=== PATIENT | male | born 1990 | race Two or more races ===

== ENCOUNTER 2021-06-01 09:46 | Day surgery (SDC) | payer OTHER, SELFPAY ==
--- NOTE | 2021-05-30 15:11 | P.CONAN_ITS ---
Documented by User: Tita Hernández NP 05/30/21 15:11 HPI - Anesthesia Eval Consult details Narrative: 30yo M for Upper Endoscopy [facility] Past Medical History Medical History (Updated 05/24/21 @ 14:57 by Ashley Martínez, CUCA) Dysphagia Elevated cholesterol Environmental allergies Hiatal hernia History of heartburn Migraines Surgical History Surgical History (Updated 05/24/21 @ 14:57 by Ashley Martínez, RN) Hx of LASIK Social History Social History Patient Tobacco Use Status: Never used Tobacco Use of substances other than those prescribed or required for medical reasons: No Are you DNR?: No Advance Directives: No Advance Directives Information Provided: Yes Recently lost weight without trying: No Nutrition Risks: No Nutritional Risk Meds Allergies Allergy/AdvReac Type Severity Reaction Status Date / Time No Known Allergies Allergy Verified 05/31/21 10:12 Home Medications Medication Instructions Recorded Confirmed Last Taken Type fluticasone furoate 27.5 1 spray INTRANASAL DAILY 05/24/21 05/24/21 Unknown History mcg/actuation nasal spray,suspension (Flonase Sensimist) omeprazole 10 mg capsule,delayed 10 mg PO DAILY 05/24/21 05/24/21 Unknown History release sumatriptan 5 mg/actuation nasal 5 mg INTRANASAL Q2-4H PRN 05/24/21 05/24/21 Unknown History spray Exam Exam Date and Time: May 30, 2021 1511 Assessment and Plan Assessment Anesthesia Assessment: Chart Reviewed Documented by User: Bryon Hamilton MD 06/01/21 10:55 [facility] Past Medical History Medical History (Updated 05/24/21 @ 14:57 by Ashley Martínez RN) Dysphagia Elevated cholesterol Environmental allergies Hiatal hernia History of heartburn Migraines Surgical History Surgical History (Updated 05/24/21 @ 14:57 by Ashley Martínez RN) Hx of MONIK Social History Social History Patient Tobacco Use Status: Never used Tobacco Use of substances other than those prescribed or required for medical reasons: No Are you DNR?: No Advance Directives: No Advance Directives Information Provided: Yes Recently lost weight without trying: No Nutrition Risks: No Nutritional Risk Meds Allergies Allergy/AdvReac Type Severity Reaction Status Date / Time No Known Allergies Allergy Verified 05/31/21 10:12 Home Medications Medication Instructions Recorded Confirmed Last Taken Type fluticasone furoate 27.5 1 spray INTRANASAL DAILY 05/24/21 05/24/21 Unknown History mcg/actuation nasal spray,suspension (Flonase Sensimist) omeprazole 10 mg capsule,delayed 10 mg PO DAILY 05/24/21 05/24/21 Unknown History release sumatriptan 5 mg/actuation nasal 5 mg INTRANASAL Q2-4H PRN 05/24/21 05/24/21 Unknown History spray Exam Airway Mallampati Class: II TM Dist: >3cm Neck ROM: Full
[2021-06-01 09:54] VITALS: BMI 32.9
[2021-06-01 10:02] VITALS: BP 133/96; PULSE 108; RESP 16; TEMP 36.5; O2SAT 95
[2021-06-01] MEDS: Lactated Ringers 1,000 ML 100 ML IVCONT (10:18)
--- NOTE | 2021-06-01 11:07 | MHC.SHP ---
Pre-Procedural Eval Section A Date of Service: 06/01/21 The patient is an INPATIENT: No Changes since office visit: No Cold of Flu in the past 2 weeks, No New Medical Problems, No Changes in Medication and No Patient answered all questions The History & Physical has been completed within 30 days and I have reviewed it.: Yes Section B Chief Complaint: dysphagia Allergies: Allergies Allergy/AdvReac Type Severity Reaction Status Date / Time No Known Allergies Allergy Verified 05/31/21 10:12 Plan I have reviewed the history and physical and performed a pertinent physical examination on my patient. No changes have occurred unless specified.
--- NOTE | 2021-06-01 11:39 | PM.OP ---
Brief Operative Note Date of Service: 06/01/21 Pre-op diagnosis: dysphagia Post-op diagnosis: same Procedure: egd Surgeon: Jayson Ramirez Anesthesia: MAC Was an Collection Analyst used for this Procedure?: No Estimated blood loss (mL): 5 Pathology: other (bxs esophagus, egj, antrum) Condition: stable Disposition: PACU
[2021-06-01 11:50] VITALS: BP 139/96; PULSE 88; RESP 16; TEMP 36.5; O2SAT 100
--- NOTE | 2021-06-01 12:04 | OP_ITS ---
SURGEON: Jayson Ramirez MD INDICATIONS: Dysphagia and abnormal barium swallow. PREOPERATIVE DIAGNOSIS: POSTOPERATIVE DIAGNOSIS: PROCEDURE PERFORMED: Upper endoscopy with biopsy. ESTIMATED BLOOD LOSS: COMPLICATIONS: ANESTHESIA: ASSISTANTS: SPECIMENS: MEDICATIONS: Monitored anesthesia care. DESCRIPTION OF PROCEDURE: History and physical performed. The risks and benefits of the procedure were explained to the patient. Informed consent was obtained. The patient was placed in the left lateral decubitus position. The Olympus video gastroscope was introduced into the esophagus, stomach, and duodenum. Examination was performed and the scope was removed. He tolerated the procedure well and was returned to recovery area in stable condition. FINDINGS: Esophagus: The esophagus showed normal overlying mucosa. Biopsies were obtained from the mid esophagus to rule out eosinophilic esophagitis and from the distal esophagus at the EG junction to evaluate for any evidence of Enrique's esophagus. There was no stricture or ring. There was a small sliding hiatal hernia. The scope easily passed through the stomach. Stomach: The stomach was normal. Antral biopsies were obtained to evaluate for H pylori. Duodenum: The bulb and second portion were normal. IMPRESSION: 1. Dysphagia. 2. Abnormal barium swallow. RECOMMENDATION: Follow up the biopsy results. MD FREDY Greenfield/ADEN / [id number]
[2021-06-01 12:05] VITALS: BP 128/91; PULSE 89; RESP 16; TEMP 36.4; O2SAT 96
== END 2021-06-01 12:20 | disposition home or self-care (01) ==
PROVIDERS: PCP Internal Medicine; Visit Provider Internal Medicine Gastroenterology
PROC: 0DJ08ZZ Inspection of Upper Intestinal Tract, Via Natural or Artificial Opening Endoscopic (ICD-10-PCS; CPT 43235; principal; 2021-06-01 10:50)
DX: R13.19 Other dysphagia (principal); K20.80 Other esophagitis without bleeding; K21.9 Gastro-esophageal reflux disease without esophagitis; K44.9 Diaphragmatic hernia without obstruction or gangrene; R10.9 Unspecified abdominal pain; R19.5 Other fecal abnormalities; Z79.899 Other long term (current) drug therapy
CPT/HCPCS: 43239; 88305; 88342; J3010

== ENCOUNTER 2025-07-17 17:21 | Emergency (ER) | payer OTHER, SELFPAY ==
--- NOTE | 2025-07-17 17:26 | ED.ABDPAIN ---
HPI - Abdominal Pain General Chief Complaint: Abdominal Pain Stated Complaint: pressure pain left side vomit with blood Time Seen by Provider: 07/17/25 17:51 Source: patient Mode of arrival: ambulatory Limitations: no limitations History of Present Illness ED Provider: Sherita Jones APRN HPI narrative: 35 yo male with PMH hiatal hernia here with complaints of LUQ abdominal pain which began at 12pm with nausea and dry heaves. Patient felt that might be hungry so at 15:00 he went to [id number] and he had a [employer] chicken plate and a Alejandra Colada and then he had worsening pain any went to the bathroom and had 3 episodes of vomiting. The last episode was blood streaked. Patient denies any black or bloody stools. No fevers, chills, chest pain, shortness of breath, weakness, dizziness. Patient reports he drank several beers weekly. Denies any drug use. No regular NSAID use. Related Data Home Medications ?Medication ?Instructions ?Recorded ?Confirmed fluticasone furoate 27.5 1 spray intranasal DAILY 05/24/21 05/24/21 mcg/actuation nasal spray,suspension (Flonase Sensimist) omeprazole 10 mg capsule,delayed 10 mg PO DAILY 05/24/21 05/24/21 release sumatriptan 5 mg/actuation nasal 5 mg intranasal Q2-4H PRN Migraine 05/24/21 05/24/21 spray Headache Previous Rx's ?Medication ?Instructions ?Recorded omeprazole 40 mg capsule,delayed 40 mg PO DAILY #14 caps 07/17/25 release Allergies Allergy/AdvReac Type Severity Reaction Status Date / Time No Known Allergies Allergy Verified 07/17/25 17:29 Review of Systems Review of Systems Yes all other systems are reviewed and are negative Constitutional: Reports no additional constitutional complaints, Denies body ache(s), Denies chills, Denies fever(s), Denies headache(s) and Denies weakness Eyes: Reports no additional eye complaints and Denies change in vision Reports system reviewed and no additional complaints, except as documented, Denies dizziness, Denies headache(s), Denies nasal congestion, Denies nasal discharge and Denies neck pain Cardiovascular: Reports no additional cardiovascular complaints, Denies chest pain, Denies leg edema and Denies dyspnea Respiratory: Reports no additional respiratory complaints, Denies cough and Denies dyspnea Gastrointestinal: Reports no additional gastrointestinal complaints, Reports abdominal pain, Denies diarrhea, Reports nausea, Reports vomiting and Reports hematemesis Genitourinary: Denies urinary incontinence Musculoskeletal: Reports no additional musculoskeletal complaints, Denies back pain, Denies arthralgias, Denies joint swelling, Denies neck pain, Denies numbness and Denies tingling Skin/Breast: Reports system reviewed and no additional complaints, except as docu and Denies rash Reports system reviewed and no additional complaints, except as documented, Denies Abnormal speech present, Denies dizziness, Denies headache(s), Denies numbness, Denies tingling and Denies weakness PMFSH Past Medical History Attestation statement: The following information was validated with the patient. Source: old records reviewed and nursing notes reviewed Medical History History of heartburn Dysphagia Hiatal hernia Elevated cholesterol Environmental allergies Migraines Surgical History Hx of LASIK Social History Social History Patient Tobacco Use Status: Never used Tobacco Smoked in Last 30 Days: Yes Use of substances other than those prescribed or required for medical reasons: No Advance Directives: No Advance Directives Information Provided: No Do you have a plan to hurt others: No Plan Physical Exam ED Vital Signs: Vital Signs - 24 hr 07/17/25 17:27 07/17/25 18:07 Temperature 98 F 98 F Pulse Rate 113 H 92 Respiratory Rate 18 16 Blood Pressure 145/89 H 118/80 Pulse Oximetry 98 97 Oxygen Delivery Method Room Air Room Air BMI result Body Mass Index 32.8 Const General: cooperative, healthy appearing, comfortable and no acute distress Orientation/consciousness: patient oriented x3 Limitations: no limitations HENMT Head: Yes normal to inspection Ears: hearing grossly normal bilaterally General nose exam: Normal external nose present Face and sinus: Yes normal facial exam Mouth: Normal oral and palatal mucosa present Throat: Yes posterior oropharynx normal Eyes General: appearance normal, both eyes and all related structures Pupils: Equal, round and reactive pupils present Neck Neck: Yes normal visual inspection Chest Chest palpation & inspection: normal inspection of the chest Resp Effort & Inspection: normal respiratory effort Auscultation: clear to auscultation bilaterally Cardio Rate: tachycardic Rhythm: regular rhythm Peripheral pulses: Peripheral pulses 2+ throughout GI Other: Stool is brown Fallon RN film touch up inspector during rectal exam Inspection: Yes normal to inspection Palpation (GI): Soft to palpation and nontender Auscultation: normal bowel sounds Rectal Exam - Male: Yes visual inspection normal Back/Spine/Pelvis Thoracic/Lumbar Spine: thoracic and lumbar spine normal to inspection Skin General skin exam: no rashes or lesions noted Neuro General: patient oriented x3, no focal motor deficits and normal sensation to monofilament Cranial nerves: Yes Equal, round and reactive pupils present Cognition (Neuro): normal cognition Speech: No Abnormal speech present Gait exam (Neuro): Normal gait present Motor exam (neuro): 5/5 motor strength present throughout Extrem General: Yes normal to inspection Course Course Course Narrative: This is a Rapid Medical Examination (RME) performed by Dianna Mckeon NP in triage. Full assessment, plan deferred to physician assistant primary care. 35-year-old male presents to the ED complaining of generalized abdominal pain ongoing for about 1 day. Reports that pain began acutely around noon, after eating gummy warm. He immediately was nauseous, and has vomited twice. He vomited the 2nd time after eating dinner at [id number] with his . Patient reports he had vomited some blood, tells me that he did not take a picture because he did not have his phone available with him at the time, but it did taste like blood in his mouth. No anticoagulants. Nausea has since resolved. Pain is localized to the LUQ of the abdomen. No diarrhea, constipation. No fever, chills. No chest pain, shortness of breath. Plan: Labs, EKG, urinalysis. Reevaluation(s) Reevaluation #1: 1913- labs show no anemia. Occult stool is negative for blood. Viral testing is negative. Chemistries were all normal. Patient has had no additional episodes of vomiting here. He reports pain is improved after receiving a GI cocktail. He likely has gastritis. I would consider PUD. I doubt GI bleed. He has been seen by Gastroenterology in the past for hiatal hernia. I recommend that he follow up with them outpatient. I will place him on a PPI for 2 weeks. I did review worrisome signs and symptoms of when to return to the emergency room. Comfortable plan for discharge home. Medical Decision Making Medical Decision Making [facility] Narrative: 35 yo male with PMH hiatal hernia here with complaints of LUQ abdominal pain which began at 12pm with nausea and dry heaves. Patient felt that might be hungry so at 15:00 he went to [employer] and he had a [employer] chicken plate and a Alejandra Colada and then he had worsening pain any went to the bathroom and had 3 episodes of vomiting. The last episode was blood streaked. Patient denies any black or bloody stools. No fevers, chills, chest pain, shortness of breath, weakness, dizziness. Patient reports he drank several beers weekly. Denies any drug use. No regular NSAID use. No focal abdominal pain. Bowel sounds are normal. Patient is hemodynamically stable. Stool is brown on rectal exam. Will obtain labs, sent occult stool, viral testing Will give GI cocktail Differential Diagnosis Differential Diagnoses: The differential diagnosis associated with the presentation includes PUD, gastritis, Doubt GIB, boerhaave syndrome, joann escudero tear Admission/Observation Consideration of admission/observation: Escalation of care including admission/observation considered Lab Data [facility] Lab Attestation statement: I reviewed the patient's lab results. 07/17/25 17:36 07/17/25 17:36 Labs: Lab Results 07/17/25 07/17/25 07/17/25 Range/Units 17:36 18:09 18:13 WBC 5.9 (4.8-10.8) X10*3/uL RBC 5.66 (4.60-5.80) X10*6/uL Hgb 14.7 (14.0-18.0) g/dl Hct 45.3 (42.0-52.0) % MCV 80.0 (80.0-98.0) fL MCH 26.0 L (27.0-33.0) pg MCHC 32.5 (31.0-36.0) g/dl RDW 12.9 (11.0-16.0) % Plt Count 236 (160-400) X10*3/uL MPV 10.0 (9.4-12.4) fL Immature Gran % (Auto) 0.3 (0.0-0.4) % Neut % (Auto) 68.9 (45-73) % Lymph % (Auto) 18.1 L (20-40) % Craig % (Auto) 6.8 (2-11) % Eos % (Auto) 5.6 H (0-4) % Baso % (Auto) 0.3 (0-2) % Lymph # (Auto) 1.1 L (1.2-4.9) X10*3/uL Craig # (Auto) 0.4 (0.1-1.2) X10*3/uL Eos # (Auto) 0.3 (0.0-0.4) X10*3/uL Baso # (Auto) 0.0 (0.0-0.2) X10*3/uL Abs Immat Gran (auto) 0.02 (0.00-0.03) X10*3/uL Absolute Neuts (auto) 4.1 (2.0-8.3) x10*3/uL Absolute Nucleated RBC 0.000 (0.0-0.012) X10*3/uL Nucleated RBC % (auto) 0.0 (0.0-0.2) /100WBC Sodium 143 (135-145) mmol/L Potassium 3.8 (3.3-5.1) mmol/L Chloride 108 (96-108) mmol/L Carbon Dioxide 26 (22-29) mmol/L Anion Gap 13 (12-20) BUN 13 (9-16) mg/dL Creatinine 1.03 (0.5-1.4) mg/dL Estim Creat Clear Calc 95.8 Estimated GFR > 60 Random Glucose 114 (60-115) mg/dL Calcium 9.6 (8.4-10.2) mg/dL Total Bilirubin 0.3 (0.0-1.0) mg/dL AST 22 (5-37) U/L ALT 29 (0-40) U/L Alkaline Phosphatase 64 (39-117) U/L Total Protein 7.4 (6.5-8.0) g/dL Albumin 4.6 (3.5-5.0) g/dL Lipase 16 (8-78) U/L Stool Occult Blood NEGATIVE (NEGATIVE) Influenza Type A (PCR) NEGATIVE (Negative) Influenza Type B (PCR) NEGATIVE (Negative) RSV RNA Qual (PCR) NEGATIVE (Negative) SARS-CoV-2 RNA (RT-PCR) NEGATIVE (Negative) Medications Administered Discontinued Medications Generic Name Dose Route Start Last Admin Trade Name Freq PRN Reason Stop Dose Admin Al Hydroxide/Mg Hydroxide 30 ml 07/17/25 18:05 07/17/25 18:13 Magnesium Hydrox/Alum Hydrox 30 Ml Oral.Susp PO 07/17/25 18:06 30 ml ONCE ONE Administration Lidocaine HCl 15 ml 07/17/25 18:05 07/17/25 18:13 Lidocaine Hcl Viscous 2 % 15 Ml Solution MUCOUS MEM 07/17/25 18:06 15 ml ONCE ONE Administration Discharge Plan Discharge Clinical Impression: Gastritis Patient Disposition: Home, Self-Care Instructions: Gastritis (ED), Diet for Stomach Ulcers and Gastritis (ED) Additional Instructions: your blood work is reassuring. Your stools shows no signs of blood. 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 Return to the emergency room for any worsening abdominal pain, black or bloody stools, more episodes of vomiting blood Prescriptions: New omeprazole 40 mg capsule,delayed release(DR/EC) 40 mg PO DAILY Qty: 14 0RF No Action sumatriptan 5 mg/actuation [place],Non-Aerosol 5 mg INTRANASAL Q2-4H PRN (Reason: Migraine Headache) omeprazole 10 mg Capsule,Delayed Release(Dr/Ec) 10 mg PO DAILY Flonase Sensimist 27.5 mcg/actuation [place],Suspension 1 spray INTRANASAL DAILY Referrals: Jayson Ramirez MD [Physician, Gastroenterology] Stand Alone Forms: Work/School Release Print Language: Maltese
[2025-07-17 17:27] VITALS: BP 145/89; PULSE 113; RESP 18; TEMP 36.6; O2SAT 98; BMI 32.8
--- NOTE | 2025-07-17 17:29 | ECG_ITS ---
Test Reason : EPIGASTRI PAIN Blood Pressure : */* mmHG Vent. Rate : 97 BPM Atrial Rate : 97 BPM P-R Int : 148 ms QRS Dur : 72 ms QT Int : 320 ms P-R-T Axes : 21 26 9 degrees QTcB Int : 406 ms Normal sinus rhythm Normal ECG No previous ECGs available Referred By: Dianna Mckeon Electronically Signed By: MICHAEL OBRIEN MD
[2025-07-17 17:42] LABS: MANUAL DIFF FLAG NO
--- OUTSIDE RECORDS SUMMARY | 2025-07-17 17:44 | XMS_ITS | Data Portability ---
Author Organization [facility], Main Office Address [address] [facility] [address] [place] [address] Care Team Providers Care Assistant Printer Floor Covering Name Role Phone ZIGGY MANTILLA Primary Care Provider ELFEGO GRULLON Manager Package Assessment No assessment recorded. Plan of Treatment Reminders Order Date Submit Date Provider Last Modified By Organization Details Last Modified Time Details Appointments None recorded. Lab hepatic function panel, serum 2016 017 abolcun [facility], [address] [facility], [address], [address], 7 11:30:18 glucose, QN [mass/volu me], serum or plasma 2016 017 abolcun [facility], [address] [facility], [facility], [place], [address], 7 11:30:18 hepatic function panel, serum 2015 016 abolcun Not available 7 10:02:[address] referral 2017 018 nevin Grullon MD, [address] [place], [address], 8 16:51:41 gastroente rologist referral - for eval of pt with persistent dysphagia despite GERD tx 2015 016 [id number] Alton Esteves, [address] [place], [address], 6 04:32:10 Procedures None recorded. Surgeries None recorded. Imaging None recorded. Medication Orders None recorded. Patient TargetsNo targets recorded. Patient Instructions Encounter Date Encounter Id Patient Instructions Last Modified By Organization Details Last Modified Time 05/09/2016 [id number] gastroesophageal reflux disease (GERD): care instructions awychowski Not available 05/09/2016 16:25:18 09/12/2016 [id number] gastroesophageal reflux disease (GERD): care instructions ckrym Not available 09/12/2016 16:05:56 Metabolic Dysfunction-Associa sherry Steatotic Liver Disease (MASLD): Care Instructions ckrym Not available 09/12/2016 16:05:56 01/14/2018 [id number] neck pain: care instructions pmadden Not available 01/14/2018 14:31:08 neck spasm: exercises pmadden Not available 01/14/2018 14:31:08 neck trapeziss upper fibers standing stretch: exercises pmadden Not available 01/14/2018 14:31:08 lightheadedness or faintness: care instructions pmadden Not available 01/14/2018 14:31:08 fainting: care instructions pmadden Not available 01/14/2018 14:31:28 At [facility]'s [facility] follow up visit, all current and discharge medications (OTC, herbal therapies, supplements) reviewed and reconciled with patient and or caregiver, including potential side effects, drug interactions, instructions, and the consequences of not taking medication. Reviewed potential barriers to medication adherence, such as side effects from medication or cost of medication. Chart reviewed, agree with above assessment and plan. ofelia Not available 01/14/2018 14:41:53 01/20/2018 [id number] lightheadedness or faintness: care instructions pmadden Not available 01/20/2018 17:37:16 fainting: care instructions pmadden Not available 01/20/2018 17:37:34 Medications (OTC , herbal therapies, supplements) reviewed and reconciled with patient and or caregiver, including potential side effects, drug interactions, instructions, and the consequences of not taking medication. Reviewed potential barriers to medication adherence, such as side effects from medication or cost of medication. Patient will follow up and keep appointment as scheduled. I have reviewed the note and agree with the assessment and plan of care. joannelessandro Not available 01/20/2018 17:51:25 Reason for Referral for eval of pt with persiste nt dysphagia despite GERD tx Referring Physician: Ziggy Mantilla, Family Medicine, Encounter Date: 05/09/2016 Manager Package Referral for Sy ncope Referring Physician: Gold Whitley, Internal Medicine, Encounter Date: 01/14/2018 Results Created Date Observation Date Name Description Value Unit Range Abnormal Flag Note LastModifiedBy Organization Detail LastModifiedTime 03/06/20 16 03/06/2016 elect rocar diogr am Rate & Rhythm 100 BPM, sinus tach/a rrhyth leticia Not Available In-Office Order Internal Use Only DO Not Attach Compendium DO Not Attach Compendium, Do Not Delete/merge, [id number] 03/06/2016 16:10:41 03/06/20 16 03/06/2016 elect rocar diogr am QRS 22 deg Not Available In-Office Order Internal Use Only DO Not Attach Compendium DO Not Attach Compendium, Do Not Delete/merge, [id number] 03/06/2016 16:10:41 03/06/20 16 03/06/2016 elect rocar diogr am WI Interval 152 ms Not Available In-Off ice Order Internal Use Only DO Not Attach Compendium DO Not Attach Compendium, Do Not Delete/merge, [id number] 03/06/2016 16:10:41 03/06/20 16 03/06/2016 elect rocar diogr am QRS Duration 71 ms Not Available In-Of fice Order Internal Use Only DO Not Attach Compendium DO Not Attach Compendium, Do Not Delete/merge, [id number] 03/06/2016 16:10:41 03/06/20 16 03/06/2016 elect rocar diogr am QT Interval 315 ms Not Available In-Off ice Order Internal Use Only DO Not Attach Compendium DO Not Attach Compendium, Do Not Delete/merge, [id number] 03/06/2016 16:10:41 04/09/20 16 04/09/2016 XR, esoph rosemarieam No observ ation record ed. [facility] (Imaging) [address], [place], [address], 05/20/2016 08:26:35 04/24/20 16 04/24/2016 CT, chest , w/o contr ast No observ ation record ed. [facility] (Outpt Imaging) [address] , [place], [address], 02/25/2018 12:18:46 12/19/19 18 12/18/2017 CT, head, w/o contr ast No observ ation record ed. [facility] Dept [address] [place], [address], 12/19/2017 12:55:13 12/19/19 18 12/18/2017 CT, maxil lofac ial, w/o contr ast No observ ation record ed. [facility] [address] [place] [address], [address], 12/19/2017 12:55:49 12/24/19 18 12/22/2017 CT, head, w/o contr ast No observ ation record ed. [facility] [address] [place], [address], 12/23/2017 21:25:27 12/24/19 18 12/23/2017 US, duple x, carot id arter y No observ ation record ed. [facility] [address] [place] [address], [address], 12/23/2017 21:26:32 12/25/19 18 MRI, brain + brain stem, w/wo contr ast No observ ation record ed. [facility] Imaging Dept [address] [place], [address], 01/14/2018 14:26:48 12/25/19 18 12/22/2017 CT, head + brain , w/o contr ast No observ ation record ed. [facility] Dept [address] [place], [address], 12/24/2017 13:00:51 01/21/20 18 01/20/2018 trans -thor acic echoc ardio gram (TTE) (PROC ) No observ ation record ed. awychowski Not Available 01/27 01:24:32 01/21/20 18 01/20/2018 trans -thor acic echoc ardio gram (TTE) (PROC ) No observ ation record ed. [email or web address] Not Available 2017 15:25:39 Result Notes None recorded. Problems Name Problem SNOMED Code Status Onset Date Resolution Date Notes Provider Name and Address Organization Details Recorded Time Body mass index 30+ - obesity 239989963 Active Ziggy Mantilla MD [address] [facility] [address], [place], [address], [facility] 6 11:45:18 Dysphagia 05511304 Active Ziggy Mantilla MD [address], [place], [address], [facility] 6 11:45:18 Gastroesoph ageal reflux disease 620676085 Active Ziggy Mantilla MD [address], [place], [address], [facility] 6 11:45:18 Blood pressure above reference range 36755827 Completed 05/09/2016 Ziggy Mantilla MD [address], [place], [address], [facility] 6 15:47:15 Tachycardia 0671425 Completed 05/09/2016 Ziggy Mantilla MD [address] [facility] [address], [place], [address], [facility] 6 15:47:12 Inverted T wave 99799423 Active Ziggy Mantilla MD [address], [place], [address], [facility] 6 11:45:18 Liver enzymes level above reference range 935994405 Active Ziggy Mantilla MD [address], [place], [address], [facility] 6 17:32:45 Hiatal hernia 58364021 Active 2015 Ziggy Mantilla MD [address], [place], [address], [facility] 6 12:18:06 Non-alcohol ic fatty liver 578602742 Active 2015 Ziggy Mantilla MD [address], [place], [address], [facility] 6 14:02:38 Headache 80494311 Active 2015 Ziggy Mantilla MD [address], [place], [address], [facility] 6 09:39:30 Traumatic dislocation of joint of finger 473118750 Active 2016 Ziggy Mantilla MD [address], [place], [address], [facility] 7 14:31:54 Single seizure 315760509 Active 2017 Ziggy Mantilla MD [address], [place], [address], [facility] 8 11:31:11 Syncope 668357623 Active 2017 Ziggy Mantilla MD [address], [place], [address], [facility] 8 16:21:11 Problem Notes None recorded. Procedures Surgical History Date Name Laterality Status Provider Name and Address Organization Details Recorded Time 02/02/20 16 Eye Surgery completed Ziggy Mantilla MD [address], [place], [address], [facility] 03/06/2016 15:44:18 06/26/20 16 Echo transthoracic completed Ziggy Mantilla MD [address] [address], [place], [address], [facility] 01/27/2018 01:24:11 Imaging Results None recorded. Procedure Notes None recorded. Medical Equipment None Reported. Allergies No known drug allergies Medications Name Sig Start Date Stop Date Status Note LastModified by Organization Details LastModified Time prednisolone acetate 1 % eye drops,suspens ion 03/06 completed Not Available Not Available Not Available gabapentin 300 mg capsule 01/14 completed Not Available Not Available Not Available omeprazole 20 mg capsule,delay ed release 05/09 completed Not Available Not Available Not Available diclofenac sodium 75 mg tablet,delaye d release 01/14 completed Not Available Not Available Not Available ibuprofen 600 mg tablet Take 1 tablet 4 times a day by oral route as needed. 01/20 completed Not Available Not Available Not Available diazepam 5 mg tablet 03/06 completed Not Available Not Available Not Available omeprazole 20 mg tablet,delaye d release Take 1 tablet every day by oral route for 30 days. 09/12 completed Not Available Not Available Not Available Vitals Date Recorded Body height Body weight Body mass index (BMI) Body temperature Oxygen saturation Heart rate Systolic And Diastolic Provider Name and Address Organization Details Last Updated DateTime 7 154.94 cm 89473.4 g 34.6 kg/m2 98.6 [degF] 96 % 85 /min 119/77 mm[Hg] Gay Hart [facility] [place] 7 15:20:51 Date Recorded Body weight Body mass index (BMI) Body height Heart rate Oxygen saturation Body temperature Systolic And Diastolic Provider Name and Address Organization Details Last Updated DateTime 8 98695.1 4 g 36.1 kg/m2 154.94 cm 110 /min 98 % 98.5 [degF] 114/66 mm[Hg] Madeline rhodes MA [facility] [place] 8 13:37:44 Date Recorded Body height Body mass index (BMI) Body weight Body temperature Oxygen saturation Heart rate Systolic And Diastolic Provider Name and Address Organization Details Last Updated DateTime 8 154.94 cm 36.1 kg/m2 48585.1 4 g 98.4 [degF] 98 % 94 /min 117/63 mm[Hg] Hilda Griffith MA [facility] 8 13:55:42 Date Recorded Body height Body weight Body mass index (BMI) Heart rate Oxygen saturation Body temperature Systolic And Diastolic Provider Name and Address Organization Details Last Updated DateTime 6 154.94 cm 89560.4 g 34.6 kg/m2 85 /min 98 % 98.7 [degF] 122/80 mm[Hg] Gay Hart MA [facility] 6 15:29:26 Social History Question Answer Notes LastModified by Organizat ion Details LastModified Time Tobacco Smoking Status Never Smoker MICHAEL Chang [facility] 03/06/2016 15:23:58 Do You Have An Advance Directive? Yes HCP Information not available 03/06/2016 Is Blood Transfusion Acceptable In An Emergency? Yes Information not available 03/06/2016 What Is Your Level Of Caffeine Consumption? None Information not available 01/14/2018 How Much Tobacco Do You Chew? None Information not available 01/14/2018 What Type Of Diet Are You Following? REGULAR Information not available 03/06/2016 Which Illicit Or Recreational Drugs Have You Used? None Information not available 01/14/2018 Live Alone Or With Others? With Others (Julia) Information not available 03/06/2016 Do You Take Precautions To Prevent Distracted Driving? Yes Information not available 03/06/2016 How Often Do You Need To Have Someone Help You When You Read Instructions, Pamphlets, Or Other Written Material From Your Doctor Or Pharmacy? Never Information not available 03/06/2016 Have You Served In The ? No Information not available 01/14/2018 What Was The Date Of Your Most Recent Tobacco Screening? 01/20/2018 Information n ot available 02/18/2019 How Many Children Do You Have? 1 Giorgio Information not available 09/12/2016 Seat Belts Used Routinely Yes Information not available 03/06/2016 Are You Sexually Active? Yes Information not available 01/14/2018 Smoke Alarm In Home Yes Information not available 03/06/2016 At What Age Did You Start Smoking Tobacco? 0 Information not available 01/14/2018 Are You Passively Exposed To Smoke? No Information not available 03/06/2016 How Much Tobacco Do You Smoke? No Information not available 01/14/2018 Do You Use Sunscreen Routinely? No Information not available 03/06/2016 How Many Years Have You Smoked Tobacco? 0 Information not available 01/14/2018 Sex: Unknown Functional Status Question Answer Note LastModified by Organizat ion Details LastModified Time What is your level of alcohol consumption? Occasional Information not available 01/14/2018 Are you currently employed? No Information not available 01/14/2018 Are you able to care for yourself independently ? 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 Occasional Information not available 03/06/2016 Mental Status None recorded. Family History Relationship Description Onset Age of this Age Resolved Age Notes LastModified by Organization Details LastModified Time Father Diabetes mellitus awychowski Not available 03/06 15:49:02 Paternal Grandfather Diabetes mellitus awychowski Not available 03/06 15:49:02 Mother Anemia awychowski Not available 03/06/2016 15:49:02 Sister Diabetes mellitus awychowski Not available 03/06 15:49:02 Maternal Grandmother Diabetes mellitus awychowski Not available 03/06 15:49:02 Medical History No medical history recorded. Immunizations Vaccine Type Date Status Note Provider Nam e and Address Organization Details Recorded Time Tdap 4 completed MICHAEL Chang [facility] [place] 03/06/2016 15:21:35 DTaP 1 completed Kat leo [facility] 03/11/2016 09:47:16 DTaP 1 completed Kat Mohan null, [facility] 03/11/2016 09:47:20 DTaP 1 completed Kat Mohan null, [facility] 03/11/2016 09:47:25 DTaP 2 completed Kat Mohan null, [facility] 03/11/2016 09:47:30 DTaP 5 completed Kat Mohan null, [facility] 03/11/2016 09:47:34 IPV 1 completed Kat Mohan null, [facility] 03/11/2016 09:47:45 IPV 1 completed Kat Mohan null, [facility] 03/11/2016 09:47:50 IPV 1 completed Kat Mohan null, [facility] 03/11/2016 09:47:54 IPV 2 completed Kat Mohan null, [facility] 03/11/2016 09:47:59 MMR 2 completed Kat Mohan null, [facility] 03/11/2016 09:48:08 MMR 5 completed Kat Mohan null, [facility] 03/11/2016 09:48:14 Td (adult) 2 completed Kat Mohan null, [facility] 03/11/2016 09:48:34 Hep B, adolescent or pediatric 8 completed Kat Mohan null, [facility] 03/11/2016 09:48:52 Hep B, adolescent or pediatric 9 completed Kat Mohan null, [facility] 03/11/2016 09:48:57 Hep B, adolescent or pediatric 9 completed Kat Mohan null, [facility] 03/11/2016 09:49:02 Tdap 0 completed Kat leo, [facility] 03/11/2016 09:49:13 meningococcal C conjugate 0 completed Katgabriela Mohan null, [facility] 03/11/2016 09:49:23 varicella 3 completed Kat leo, [facility] 03/11/2016 09:49:37 Influenza, split virus, quadrivalent, preservative 6 completed Gay Hart [place] null, [facility] 05/09/2016 15:27:44 HPV9 6 completed Not Available [facility] 08/14/2019 02:21:59 HPV9 6 completed Not Available [facility] 08/14/2019 02:21:59 Past Encounters Encounter ID Performer Location Encounter Start Date Encounter Closed Date Diagnosis/Indication Diagnosis SNOMED-CT Code Diagnosis ICD10 Code Diagnosis IMO Codes Diagnosis Note [id number] Ziggy Mantilla MD Main Office [address] [place] [address] 03/06/2016 14:46:32 03/06/2016 16:20:21 Adult health examination 574860860 Z00.01 Immunizati on status updated, flu advised in the Fall. Regular dental and ophtho care advised as well as seat belt and sunscreen use. Distracted driving discussed. Advance directives in place. Body mass index 30+ - obesity 089286611 Z68.30 Dysphagia 73832300 R13.1 0 Will start eval with UGI and see if PPI trial helps. Some concern for vascular sling in light of tachycardi a. Gastroesop hageal reflux disease 560715004 K21.9 Blood pres sure above reference range 85782315 R03.0 Start eval with ECG and labs. If still >140/90 at f/u will need rx. Administra tion of viral vaccine 09579114 Z23 Tachycardia 5516873 R00. 0 ECG largely unremarkab le. If persistent or symptoms evolve may need echo. Inverted T wave 57155144 R94.31 With BP elevation and tachycardi a further evaluation might be required. [id number] Ziggy Mantilla MD Main Office [address] [facility] [address] [place] [address] 05/09/2016 14:47:42 05/09/2016 16:05:48 Gastroesophageal reflux disease 550750965 K21.9 Remains symptomati c on PPI. Will continue pending completion of GI eval. Administra tion of viral vaccine 15355649 Z23 Increased liver function 13485537 R94.5 Liklely NAFLD, but will ask GI to evaluate further for possible celiac or H pylori if appropriat e. Esophageal dysphagia 408 76431 R13.19 [id number] Ziggy Mantilla MD Main Office [address] [address] [place] [address] 06/07/2016 09:23:48 06/07/2016 09:39:50 [id number] Ziggy Mantilla MD Main Office [address] [address] [place] [address] 09/12/2016 14:50:21 09/12/2016 16:06:14 Gastroesophageal reflux disease 752033980 K21.9 Off of meds. Will monitor clinically . Dysphagia 34231783 R13.1 0 Pt reports resolution of symptoms. Did not f/u with GI. Will monitor clinically . Counseled on warning signs/symp toms. Non-alcoho lic fatty liver 593977036 K76.0 Low term potential health consequenc es discussed. Low fat, high fiber diet along with regular exercise and weight loss advised. [id number] Gold Whitley PA-C Main Office [address] [address] [place] [address] 01/14/2018 13:26:11 01/14/2018 14:24:32 Neck pain 64396294 M54.2 resolving, no need for ibu lately - rec it prn as well as do HEP Syncope 684444179 R55 ? 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) [id number] Gold Whitley PA-C Main Office [address] [address] [place] [address] 01/20/2018 13:26:54 01/20/2018 14:48:43 Syncope 044242971 R55 no further episodes of syncope, no evidence of sz - cleared by neuro, then cleared by card yest consider gatorade if exercising a lot in summer heat and stay hydrated in general -- cleared to go back to work Health Concerns Section Related Observation LastModified by Organization Detai ls LastModified Time None Recorded Concern Status LastModified by Organization Details LastModified Time None Recorded Advance Directives Directive Y: HCP Payers Insurance Date Sequence Insurance Name Policy Number Policy Wood Covered Member ID Wood Member ID Guarantor Name 04/03/2018 1 [facility] [employer] [facility] (MEDICAID HMO) Chemo Booth [id number] Chemonilson JonesLeobardo 04/03/2018 2 [place] [facility] Chemo Booth [id number] Chemonilson Booth 02/25/2018 1 [facility] (HMO) [id number] Chemo Booth [id number] Chemonilson JonesLeobardo Notes Date Note Type Note Provider Name and Address Organization Details Recorded Time 6 text/htm l GERD RefluxReported by PatientHPIFor symptoms, patient reportsdifficulty swallowing (dysphagia)andpain swallowing (odynophagia). For quality, patient reportspressure. For associated symptoms, patient reportsfood getting stuckbut reportsno frequent coughing,no feeling of fullness/mass in throat,no hoarseness, andno belching/burping. For severity, patient reportssame. For duration, patient reportspresent 1-4 years. For onset/timing, patient reportsgradual onset. For context, patient reportsnon-smoker. For alleviating factors, patient reportsnothing helps.Had UGI which showed HH and reflux and question of esophageal compression which prompted a chest CT scan that was normal. Still having swallowing difficulty despite PPI therapy. Ziggy Mantilla MD [address] [address], [place], [address], [facility] 05/20/2016 08:31:35 6 text/htm l Hospitalization Contact RecordReported by Patient Emergency Department Follow-Up RecordReported by PatientEmergency Room Follow-Up RecordFor discharge information, patient reportsname [facility] ed [facility],emergency department discharge date: (please enter in format 'mm/dd/yyyy') (06/06/16), anddate of follow-up phone call: (please enter in format 'mm/dd/yyyy') (06/07/16)(25 year old male patient presented to [facility] with migraine .diagnosis :headachect brain negative for subdural, mass. headache improved while in the ed, patient has no neuro deficits, no risk factors for cva. headache could be from parasinus disease. patient advised to follow up with pcp to discuss further headache treatment, continue excedrin at home.career coordinator outreach call to patient regarding ed discharge. left detailed message to contact a with status. patient as no future visit with pcp.). Ziggy Mantilla MD [address] [address], [place], [address], [facility] 06/07/2016 09:39:48 7 text/htm l GERD RefluxReported by PatientHPIFor quality, patient reportspressure. For associated symptoms, patient reportsfood getting stuckbut reportsno frequent coughing,no feeling of fullness/mass in throat,no hoarseness, andno belching/burping. For symptoms, patient reportsasymptomaticandno difficulty swallowing. For severity, patient reportssame. For duration, patient reportspresent 1-4 years. For onset/timing, patient reportsgradual onset. For context, patient reportsnon-smoker. For alleviating factors, patient reportsnothing helps.Had UGI which showed HH and reflux and question of esophageal compression which prompted a chest CT scan that was normal. Symptoms much improved never went to see GI. Abnormal Liver TestsReported by PatientHPIFor severity, patient reportsast:33,alt:56,total bilirubin: 0.3, andalkaline phosphatase: 58. For duration, patient reportspresent for 1-6 months. For onset/timing, patient reportsnoted on routine blood work. For associated symptoms, patient reportsno jaundiceandno ruq abdominal pain. Ziggy Mantilla MD [address] [facility] [address], [place], [address], [facility] 09/12/2016 16:10:05 8 text/htm l here for f/u 2 things - seen in ER a few times recently seen in f/u c neuro, then seen again today - doubt neurogenic syncope, ? cardiogenic -- req further eval had L trap m spasm 2 days ago from sleeping awkwardly (1 pillow) - rec'd what sounds like trigger point injxn, has used occ ibu - feels > 90% better Ziggy Mantilla MD [address] [facility] [address], [place], [address], [facility] 01/14/2018 14:42:00 8 text/htm l pt saw Dr. Bynum and Dr. Grullon for syncope he had a CT of his brain,EEG,MRI,EKG and Echo all are normal was diagnosed with benign syncope and cleared to work. rev. both consults in detail c pt no further problems c syncope - admits to drinking more water Param leo, [facility] 01/20/2018 17:51:34
--- OUTSIDE RECORDS SUMMARY | 2025-07-17 17:45 | XMS_ITS | Clinical Summary ---
Author Organization [facility] ity Address [address] [place] [address] Care Team Providers Care Public Speaking Coach Name Role Phone Unavailable Primary Care Provider Unavailabl e Social History Tobacco Use Types Packs/Day Years Used Date Smoking Tobacco: Never Assessed Sex and Gender Information Value Date Recorded Sex Assigned at Not on file Legal Sex Male 12:17 AM EST Gender Identity Not on file Sexual Orientation Not on file Plan of Treatment Health Maintenance Due Date Last Done Comments DTaP,Tdap,and Td Vaccines (1 - Tdap) 2009 Hepatitis B Vaccines (1 of 3 - 19+ 3-dose series) 2009 HPV Vaccines (1 - 3-dose SCD M series) 2017 Cholesterol Screening (Lipid Panel) 06/30/2022 HIV Screening 06/30/2022 Hepatitis C Screening 06/30/2022 Social Influencers of Health Screening 06/30/2022 Depression Screening 07/28/2024 COVID-19 Vaccine (1 - 2024-2 6 season) 2025 Influenza Vaccine (#1) 2025 RSV Immunization Adult Patie nts (1 - 1-dose 75+ series) 2065 HIB Vaccines Aged Out No longer eligi ble based on patient's age to complete this topic Hepatitis A Vaccines Aged Out No long er eligible based on patient's age to complete this topic IPV Vaccines Aged Out No longer eligi ble based on patient's age to complete this topic MMR Vaccines Aged Out No longer eligi ble based on patient's age to complete this topic Meningococcal ACWY Vaccine Aged Out N o longer eligible based on patient's age to complete this topic Meningococcal B Vaccine Aged Out No l onger eligible based on patient's age to complete this topic Pneumococcal Vaccine: Pediat rics (0 to 5 Years) and At-Risk Patients (6 to 49 Years) Aged Out No longer eligible b ased on patient's age to complete this topic RSV Immunization Patients Un juanita 20 months Aged Out No longer eligible b ased on patient's age to complete this topic Varicella Vaccines Aged Out No longer eligible based on patient's age to complete this topic
--- OUTSIDE RECORDS SUMMARY | 2025-07-17 17:45 | XMS_ITS | Patient Health Record ---
Author Organization [facility] Address [address] [place] [address] Care Team Providers Care Store Administrative Assistant Name Role Phone Pina Pennington Primary Care Provider Unavailab Jayson Blum Jr Unavailable [phone] Allergies No Known Allergies Reason For Referral No Information Medications Medication SIG (Take, Route, Frequency, Duration) Notes Start Date End Date Status Omeprazole 20 MG Capsule Delayed Release 1 capsule 30 minutes before morning meal Orally Once a day; Duration: 30 day(s) 12/30/2022 Active Cyclobenzaprine HCl 5 MG Tablet Oral; Duration: 10 Active Sertraline HCl 50 MG Tablet Oral; Duration: 90 Active Omeprazole 40 MG Capsule Delayed Release 1 capsule 30 minutes before morning meal Orally Once a day; Duration: 30 day(s) 06/05/2021 Not-Taking/P RN SUMAtriptan 5 MG/ACT Solution 1 spray at onset of headache in one nostril may repeat dose after 2 hours as needed Nasally Once a day; Duration: 1 day(s) Active Flonase Sensimist 27.5 MCG/SPRAY Suspension 1 spray in each nostril Nasally Once a day; Duration: 30 day(s) Active Immunizations Vaccine Route Administration Date Status Comme nts Influenza Unknown 05/09/2021 Refused Social History Tobacco Use: Social History Observation Description Date Details (start date - stop date) Never Smoker NA - NA Social History Drugs/Alcohol: Social Info Question Answer Notes Alcohol Screen Did you have a drink containing alcohol in the past year? Yes How often did you have a drink containing alcohol in the past year? 2 to 4 times a month (2 points) How many drinks did you have on a typical day when you were drinking in the past year? 1 or 2 drinks (0 point) How often did you have 6 or more drinks on one occasion in the past year? Never (0 point) Points 2 Interpretation Negative Tobacco Use: Social Info Question Answer Notes Tobacco Use/Smoking Patient is a nonsmoker Additional Details Category Social Info Options Details Miscellaneous: Marital status: Occupation: works full-time Problems Problem Type SNOMED Code ICD Code Onset Dates Problem Status W/U Status Risk Notes Problem Gastroesophageal reflux disease without esophagitis (473979045) Gastroesophageal reflux disease without esophagitis (K21.9) Active confirmed Problem Barium swallow abnormal (740936420) Abnormal barium swallow (R93.3) Active confirmed Problem Gastroesophageal reflux disease with esophagitis (disorder) (836042759) Gastroesophageal reflux disease with esophagitis without hemorrhage (K21.00) Active confirmed Problem Esophageal dysphagia (93571394) Esophageal dysphagia (R13.19) Active confirmed Plan Of Treatment Future Test Test Name Order Date UPPER GI ENDOSCOPY 05/09/2021 Medical (General) History Medical History History ICD Code Migraines Environmental allergies Elevated cholesterol, diet controlled Depression Gastroesophageal reflux dise ase, EGD 06/01/21 active esophagitis, no Enrique's or H. pylori Surgical History Surgery Date(Month/Year) lasik eye surgery 2016
[2025-07-17 17:57] LABS: Alanine Aminotransferase 29 U/L (0-40); Albumin Level 4.6 g/dL (3.5-5.0); Alkaline Phosphatase 64 U/L (39-117); Anion Gap 13 (12-20); Aspartate Amino Transferase 22 U/L (5-37); Blood Urea Nitrogen 13 mg/dL (9-16); Calcium 9.6 mg/dL (8.4-10.2); Carbon Dioxide 26 mmol/L (22-29); Chloride 108 mmol/L (96-108); Creatinine Clr Calc Pharmacy 95.8; Estimated Glomerular Filt Rate > 60; Lipase 16 U/L (8-78); Potassium 3.8 mmol/L (3.3-5.1); Sodium 143 mmol/L (135-145); Total Protein 7.4 g/dL (6.5-8.0)
[2025-07-17 18:07] VITALS: BP 118/80; PULSE 92; RESP 16; TEMP 36.6; O2SAT 97
[2025-07-17 18:07] LABS: Hematocrit 45.3 % (42.0-52.0); Hemoglobin 14.7 g/dl (14.0-18.0); Imm Gran Abs Auto 0.02 X10*3/uL (0.00-0.03); Imm Gran Pct Auto 0.3 % (0.0-0.4); Lymphocytes Absolute Auto 1.1 X10*3/uL (1.2-4.9); Mean Corpuscular HGB Conc 32.5 g/dl (31.0-36.0); Mean Corpuscular Hemoglobin 26.0 pg (27.0-33.0); Mean Corpuscular Volume 80.0 fL (80.0-98.0); NRBC Abs Auto 0.000 X10*3/uL (0.0-0.012); NRBC Pct Auto 0.0 /100WBC (0.0-0.2); Platelet Count 236 X10*3/uL (160-400); Red Blood Count 5.66 X10*6/uL (4.60-5.80); White Blood Count 5.9 X10*3/uL (4.8-10.8)
[2025-07-17] MEDS: Lidocaine HCl Viscous 2 % 15 ML SOLUTION MUCOUS MEM (18:13)
[2025-07-17] MEDS: Magnesium Hydrox/Alum Hydrox 30 ML ORAL.SUSP PO (18:13)
[2025-07-17 18:14] LABS: OBS Int Ctl Valid YES; OBS1 NEGATIVE (NEGATIVE)
[2025-07-17 18:59] LABS: Resp Syncy Virus RNA Qual PCR NEGATIVE (Negative); SARS COV2 PCR INHOUSE NEGATIVE (Negative)
--- NOTE | 2025-07-17 19:21 | PC.NURSE ---
Pt a&ox4, no signs of distress. Pt denies pain at this time Plan of care ongoing.
[2025-07-17 19:22] VITALS: BP 118/80; PULSE 92; RESP 16; TEMP 36.6; O2SAT 97
== END 2025-07-17 19:23 | disposition home or self-care (01) ==
PROVIDERS: Nurse Practitioner; Nurse Practitioner Family; Emergency Provider Emergency Medicine; PCP Internal Medicine
DX: K52.9 Noninfective gastroenteritis and colitis, unspecified (principal); R10.12 Left upper quadrant pain; R00.0 Tachycardia, unspecified; Z03.818 Encounter for observation for suspected exposure to other biological agents ruled out
CPT/HCPCS: 36415; 80053; 82272; 83690; 85025; 87637; 93005; 99283; 99284

== ENCOUNTER → 2025-07-17 17:29 | Outpatient (BNV) | payer OTHER, SELFPAY | PROVIDERS: Emergency Provider Emergency Medicine; PCP Internal Medicine; Visit Provider Internal Medicine Cardiovascular Disease | DX: R10.13 Epigastric pain (principal) | CPT/HCPCS: 93010 ==